=== PATIENT | female | born 1990 | race Caucasian/White ===

== ENCOUNTER 2016-10-11 02:19 | Emergency (ER) | payer BC ==
[2016-10-11 02:47] VITALS: BMI 32.9
[2016-10-11] MEDS ORDERED: SODIUM CHLORIDE 1,000 ML IV STA (03:20)
[2016-10-11 03:41] LABS: BASOPHIL 0.6 % (0-2.0); EOSINOPHIL 0.4 % (0-4.5); MCH 24.7 pg (25.7-33.7); MCHC 32.4 g/dl (32.0-36.0); MEAN CELL VOLUME 76.4 fl (80-96); MEAN PLT VOLUME 6.9 fl (7.5-11.1); NEUTROPHILS 79.9 % (42.8-82.8); PLATELET COUNT 296 K/MM3 (134-434); RDW 14.3 % (11.6-15.6); WHITE BLOOD COUNT 13.9 K/mm3 (4.0-10.0)
--- NOTE | 2016-10-11 03:41 | PDOC ---
History of Present Illness - General Chief Complaint: Pain Stated Complaint: FEVER, SORE THROAT (32 WEEKS PREG) Time Seen by Provider: 10/11/16 02:28 History Source: Patient Exam Limitations: No Limitations - History of Present Illness Initial Comments: 10/11/16 03:36 25yo Female patient 32 weeks presents to ED c/o sore throat x 3 days, fever today (101.0). Patient states she took Tylenol prior to her arrival with no relief. Patient denies any other complaints at this time. Past History - Travel Traveled outside of the country in the last 30 days: No Close contact w/someone who was outside of country & ill: No - Past Medical History Allergies/Adverse Reactions: Allergies Allergy/AdvReac Type Severity Reaction Status Date / Time No Known Allergies Allergy Verified 10/11/16 02:43 Home Medications: Ambulatory Orders Vitamins (Sjr) - 1 tab PO DAILY 04/03/14 Acetaminophen [Tylenol .Regular Strength -] 650 mg PO Q3H PRN #20 tablet Ferrous Sulfate [Feosol] 325 mg PO BID #0 ud 04/07/14 Amoxicillin - [Amoxicillin 500mg Capsule -] 500 mg PO TID #21 capsule 10/11/16 Asthma: No Cancer: No Cardiac Disorders: No Diabetes: Yes (Pre-diabetic) HTN: No Seizures: No Thyroid Disease: No - Surgical History Abdominal Surgery: Yes (HERNIA REPAIR) - Reproductive History (#): 1 Para: 0 Spontaneous : 0 - Immunization History Immunization Up to Date: Yes - Psycho/Social/Smoking Cessation Hx Anxiety: No Suicidal Ideation: No Smoking Status: No Smoking History: Never smoked Years of Tobacco Use: 3 Have you smoked in the past 12 months: Yes Number of Cigarettes Smoked Daily: 6 If you are a former smoker, when did you quit?: 07/2013 Information on smoking cessation initiated: No 'Breaking Loose' booklet given: 09/05/13 Hx Alcohol Use: No Drug/Substance Use Hx: No Substance Use Type: None Hx Substance Use Treatment: No Respiratory Specific PMHX - Complaint Specific PMHX Angina: No Bronchitis: No Pneumonia: No Pulmonary Embolus: No TB (Tuberculosis): No Review of Systems - Review of Systems Able to Perform ROS?: Yes Is the patient limited Kittitian proficient: No Constitutional: Yes: Fever. No: Chills HEENTM: Yes: Throat Pain. No: Difficulty Swallowing Respiratory: No: Cough, Shortness of Breath, Wheezing Cardiac (ROS): No: Chest Pain, Palpitations, Syncope, Chest Tightness ABD/GI: Yes: Other (32 Weeks ). No: Diarrhea, Nausea, Poor Appetite, Poor Fluid Intake, Vomiting : No: Dysuria, Flank Pain, Hematuria Musculoskeletal: Yes: Neck Pain. No: Back Pain Integumentary: No: Bruising, Rash, Sweating Neurological: No: Headache, Tingling, Dizziness Hematologic/Lymphatic: Yes: Lymph Node Abnormalities All Other Systems: Reviewed and Negative *Physical Exam - Vital Signs Last Vital Signs Temp Pulse Resp BP Pulse Ox 99.3 F 129 H 20 102/68 99 10/11/16 02:44 10/11/16 02:44 10/11/16 02:44 10/11/16 02:44 10/11/16 02:44 - Physical Exam General Appearance: Yes: Nourished, Appropriately Dressed. No: Apparent Distress, Mild Distress, Moderate Distress, Severe Distress HEENT: positive: EOMI, SOWMYA, Normal ENT Inspection, Normal Voice, Symmetrical, TMs Normal, Pharyngeal Erythema, Tonsillar Erythema. negative: Pharynx Normal, Tonsillar Exudate, TM Bulging, TM Dull, TM Erythema Neck: positive: Trachea midline, Normal Thyroid, Supple, Lymphadenopathy (R), Lymphadenopathy (L). negative: Stridor, Tender lateral, Tender midline Respiratory/Chest: positive: Lungs Clear, Normal Breath Sounds. negative: Chest Tender, Respiratory Distress, Accessory Muscle Use, Labored Respiration, Rapid RR Cardiovascular: positive: Regular Rhythm, Regular Rate Gastrointestinal/Abdominal: positive: Normal Bowel Sounds, Soft, Distended (32 Weeks ). negative: Guarding, Rebound, Tenderness Musculoskeletal: positive: Normal Inspection. negative: CVA Tenderness, Decreased Range of Motion, Muscle Spasm, Vertebral Tenderness Extremity: positive: Normal Capillary Refill, Normal Inspection, Normal Range of Motion. negative: Pedal Edema, Swelling, Calf Tenderness, Erythema, Inflammation Integumentary: positive: Normal Color, Dry, Warm Neurologic: positive: cotton candy maker II-XII NML intact, Fully Oriented, Alert, Normal Mood/ Affect, Normal Response, Motor Strength 5/5 ED Treatment Course - LABORATORY CBC & Chemistry Diagram: 10/11/16 03:34 10/11/16 03:34 *DC/Admit/Observation/Transfer - Prescriptions Prescriptions: Amoxicillin - [Amoxicillin 500mg Capsule -] 500 mg PO TID #21 capsule
[2016-10-11 04:06] LABS: ALBUMIN 2.7 g/dl (3.4-5.0); ALK PHOS 143 U/L (45-117); ANION GAP 11 (8-16); BILIRUBIN,TOTAL 0.3 mg/dL (0.2-1.0); CALCIUM 8.7 mg/dL (8.5-10.1); CO2 22 mmol/L (21-32); COCKROFT - GAULT 186.3455; CREATININE 0.6 mg/dL (0.55-1.02); GLUCOSE,RANDOM 95 mg/dL (74-106); SGOT/AST 13 U/L (15-37); SGPT/ALT 14 U/L (12-78); TOT PROT 6.6 g/dl (6.4-8.2)
[2016-10-11 05:02] LABS: URINE APPEARANCE CLEAR; URINE BILIRUBIN NEGATIVE (NEGATIVE); URINE COLOR STRAW; URINE GLUCOSE (UA) NEGATIVE (NEGATIVE); URINE KETONE TRACE (NEGATIVE); URINE NITRITE NEGATIVE (NEGATIVE); URINE PROTEIN NEGATIVE (NEGATIVE); URINE UROBILINOGEN NEGATIVE E.U./dl (0.2-1.0)
[2016-10-11 05:10] LABS: URINE BLOOD 1+ (NEGATIVE); URINE LEUK ESTERASE TRACE (NEGATIVE)
[2016-10-11 05:19] LABS: URINE BACTERIA MANY /hpf (NONE SEEN); URINE RBC 1 /hpf (0-3); URINE WBC 9 /hpf (3-5)
[2016-10-11] MEDS ORDERED: AMOXICILLIN 500 MG CAPSULE (FP) PO ONE (05:43)
[2016-10-11] MEDS ORDERED: AMOXICILLIN 500 MG CAPSULE (FP) ONE (05:50)
[2016-10-11 06:46] VITALS: BP 106/64; PULSE 105; TEMP 97.8
== END 2016-10-11 07:01 | disposition home or self-care (01) ==
LOC: JER 02:19
DX: O99.89 Other specified diseases and conditions complicating pregnancy, childbirth and the puerperium (principal); R50.9 Fever, unspecified; Z3A.32 32 weeks gestation of pregnancy
CPT/HCPCS: 36415; 80053; 81003; 81015; 85025; 87070; 87086; 87430; 99284-25

== ENCOUNTER 2016-11-29 20:45 | Inpatient (IN) | payer BC ==
[2016-11-29] MEDS ORDERED: ELECTROLYTE-148 SOLN 1,000 ML IV SCH (23:00)
--- NOTE | 2016-11-29 23:07 | HP ---
Past Medical History - Admission Chief Complaint: Back pain History of Present Illness: 26 yo @ 40 weeks gestation, EDC 11/29/16, presents c/o back pain. She denies any vaginal bleeding nor rupture of membrane. History Source: Patient Limitations to Obtaining History: No Limitations - Past Medical History ...Para: 1 ...EDC by Rosanne: 11/29/16 Heme/Onc: Yes: Anemia Infectious Disease: Yes: STD's (h/o gonorrhea treated 2010.) - Past Surgical History Past Surgical History: Yes: None Hx Myomectomy: No Hx Transabdominal Cerclage: No - Smoking History Smoking history: Never smoked Have you smoked in the past 12 months: Yes Aproximately how many cigarettes per day: 6 If you are a former smoker, when did you quit?: 07/2013 - Alcohol/Substance Use Hx Alcohol Use: No History of Substance Use: reports: None - Social History Usual Living Arrangement: Yes: With Spouse History of Recent Travel: No Home Medications - Allergies Allergies/Adverse Reactions: Allergies Allergy/AdvReac Type Severity Reaction Status Date / Time No Known Allergies Allergy Verified 10/11/16 02:43 - Home Medications Home Medications: Ambulatory Orders Vitamins (Sjr) - 1 tab PO DAILY 04/03/14 Acetaminophen [Tylenol .Regular Strength -] 650 mg PO Q3H PRN #20 tablet Ferrous Sulfate [Feosol] 325 mg PO BID #0 ud 04/07/14 Amoxicillin - [Amoxicillin 500mg Capsule -] 500 mg PO TID #21 capsule 10/11/16 Family Disease History - Family Disease History Family History: Unremarkable Review of Systems - Review of Systems Constitutional: reports: No Symptoms Eyes: reports: No Symptoms HENT: reports: No Symptoms Neck: reports: No Symptoms Cardiovascular: reports: No Symptoms Respiratory: reports: No Symptoms Gastrointestinal: reports: No Symptoms Genitourinary: reports: Pain, Other (Back pain) Breasts: reports: No Symptoms Reported Musculoskeletal: reports: No Symptoms Integumentary: reports: No Symptoms Neurological: reports: No Symptoms Endocrine: reports: No Symptoms Hematology/Lymphatic: reports: No Symptoms Psychiatric: reports: No Symptoms Pain Intensity: 4 Physical Exam - Maternity Vital Signs: Vital Signs Temperature Pulse Rate 67 11/29/16 22:58 Respiratory Rate 20 11/29/16 22:58 Blood Pressure 122/69 11/29/16 22:58 O2 Sat by Pulse Oximetry (%) Constitutional: Yes: Well Nourished Eyes: Yes: Conjunctiva Clear HENT: Yes: Atraumatic Neck: Yes: Supple, Trachea Midline Cardiovascular: Yes: Regular Rate and Rhythm Lungs: Clear to auscultation - Abdominal Exam/OB Number of Fetuses: Single Presentation: Vertex - Vaginal Exam/OB Dilatation (cm): 4 Effacement (%): 70 Amniotic Membrane Status: Intact Meconium: Light Presentation: Vertex/Position Station: -2 - Physical Exam Musculoskeletal: Yes: WNL Integumentary: Yes: WNL ...Motor Strength: WNL Psychiatric: Yes: Alert, Oriented Assessment/Plan IUP @ 40 weeks Early labor Admit to L&D Pitocin augmentation Anticipate
[2016-11-29 23:10] LABS: BASOPHIL 0.4 % (0-2.0); MCH 22.2 pg (25.7-33.7); MCHC 31.5 g/dl (32.0-36.0); MEAN CELL VOLUME 70.6 fl (80-96); MEAN PLT VOLUME 7.4 fl (7.5-11.1); NEUTROPHILS 63.9 % (42.8-82.8); PLATELET COUNT 284 K/MM3 (134-434); RDW 16.6 % (11.6-15.6); WHITE BLOOD COUNT 11.6 K/mm3 (4.0-10.0)
[2016-11-29] MEDS ORDERED: OXYTOCIN 15 UNITS/ LR 250 ML 250 ML IVPB SCH (23:15)
[2016-11-29 23:28] LABS: INR 1.03 (0.82-1.09); PROTHROMBIN TIME (PATIENT) 11.3 SEC (9.98-11.88)
[2016-11-29 23:31] LABS: ACTIVATED PTT 26.7 SECONDS (26.9-34.4)
[2016-11-29 23:37] LABS: ANION GAP 10 (8-16); CALCIUM 8.1 mg/dL (8.5-10.1); CO2 23 mmol/L (21-32); CREATININE 0.6 mg/dL (0.55-1.02); GLUCOSE,RANDOM 91 mg/dL (74-106)
[2016-11-30] MEDS ORDERED: FENTANYL/BUPIVACAINE/NS/PF - PCEA - 50 ML DISP.SYRIN EP SCH ×2 (01:15→01:16)
[2016-11-30] MEDS ORDERED: BISACODYL 10 MG SUPP.RECT RC PRN (03:40)
[2016-11-30] MEDS ORDERED: BENZOCAINE 20% 57 GM BOTTLE TP PRN (03:40)
[2016-11-30] MEDS ORDERED: WITCH HAZEL 50% (TUCKS) 40 PAD/JAR PAD TP PRN (03:40)
[2016-11-30] MEDS ORDERED: METHYLERGONOVINE MALEATE 0.2 MG/1 ML AMP IM PRN (03:40)
[2016-11-30] MEDS ORDERED: BENZOCAINE 28 GM HEMORRHOIDAL OINTMENT TP PRN (03:40)
--- NOTE | 2016-11-30 03:43 | PN ---
Delivery - Delivery Vaginal Delivery: Spontaneous Type of Anesthesia: Epidural Episiotomy/Laceration: 1st degree EBL (cc): 300 Remarks - Remarks Remarks: Normal spontaneous vaginal delivery of a live over first degree laceration. Nose / Oropharynx suctioned @ perineum. Cord clamped and cut. Placenta expelled spontaneously intact. Laceration repaired with 2.0 Biosyn.
[2016-11-30] MEDS ORDERED: D5W-LR W/ 20 UNITS OXYTOCIN 1,000 ML IV SCH (03:45)
--- NOTE | 2016-11-30 03:46 | DS ---
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 Vital Signs: Vital Signs Temperature 98.6 F 11/30/16 02:00 Pulse Rate 79 11/30/16 01:50 Respiratory Rate 20 11/30/16 01:50 Blood Pressure 98/62 11/30/16 01:50 O2 Sat by Pulse Oximetry (%) 100 11/30/16 01:50 Constitutional: Yes: Well Nourished Eyes: Yes: Conjunctiva Clear HENT: Yes: Atraumatic Neck: Yes: Supple Cardiovascular: Yes: Regular Rate and Rhythm Respiratory: Yes: Regular Gastrointestinal: Yes: Normal Bowel Sounds Vaginal Exam: Yes: Normal Cervix: Yes: Normal Uterus: Yes: Firm ....Post : Yes: Uterus firm, Moderate lochia serosa Breast(s): Yes: WNL Musculoskeletal: Yes: WNL Extremities: Yes: WNL Neurological: Yes: Alert, Oriented ...Motor Strength: WNL Psychiatric: Yes: Alert, Oriented Labs: CBC, BMP 11/29/16 22:43 11/29/16 22:43 Delivery - Delivery Vaginal Delivery: Spontaneous Type of Anesthesia: Epidural Episiotomy/Laceration: 1st degree EBL (cc): 300 Discharge Summary Reason For Visit: LABOR ADMIT Current Active Problems Status post normal vaginal delivery (Acute) Procedures: Principal: Normal spontaneous vaginal delivery Hospital Course: Routine care Condition: Good - Instructions Diet, Activity, Other Instructions: Regular diet No douching, no sexual intercourse x 6 weeks F/U in clinic in 6 weeks Disposition: HOME - Home Medications Comprehensive Discharge Medication List: Ambulatory Orders Vitamins (Sjr) - 1 tab PO DAILY 04/03/14 Acetaminophen [Tylenol .Regular Strength -] 650 mg PO Q3H PRN #20 tablet Ferrous Sulfate [Feosol] 325 mg PO BID #0 ud 04/07/14 Amoxicillin - [Amoxicillin 500mg Capsule -] 500 mg PO TID #21 capsule 10/11/16
[2016-11-30 04:15] VITALS: BMI 32.9
[2016-11-30] MEDS: IBUPROFEN 600 MG TABLET (FP) PO PRN ×2 (08:14→21:03)
[2016-11-30] MEDS: FERROUS SO4 325 MG TABLET (FP) PO SCH ×3 (08:14→17:16)
[2016-11-30] MEDS: ACETAMINOPHEN 325 MG TABLET (FP) PO PRN ×2 (08:14→21:03)
[2016-11-30] MEDS: PRENATAL VITAMINS W/ FOLIC ACID TABLET (FP) PO SCH (09:23)
[2016-12-01] MEDS: ACETAMINOPHEN 325 MG TABLET (FP) PO PRN ×2 (07:14→13:52)
[2016-12-01] MEDS: IBUPROFEN 600 MG TABLET (FP) PO PRN ×2 (07:14→13:51)
[2016-12-01 07:18] LABS: BASOPHIL 0.5 % (0-2.0); EOSINOPHIL 1.2 % (0-4.5); MCHC 32.2 g/dl (32.0-36.0); MEAN CELL VOLUME 71.3 fl (80-96); MEAN PLT VOLUME 7.3 fl (7.5-11.1); NEUTROPHILS 64.9 % (42.8-82.8); PLATELET COUNT 294 K/MM3 (134-434); RDW 16.8 % (11.6-15.6); WHITE BLOOD COUNT 13.4 K/mm3 (4.0-10.0)
[2016-12-01] MEDS: PRENATAL VITAMINS W/ FOLIC ACID TABLET (FP) PO SCH (09:05)
[2016-12-01] MEDS: FERROUS SO4 325 MG TABLET (FP) PO SCH ×3 (09:05→17:54)
[2016-12-01] MEDS ORDERED: DIPHTH,PERTUSS(ACELL),TET 0.5 ML DISP.SYRIN IM ONE (10:00)
--- NOTE | 2016-12-01 10:08 | PN ---
Post Progress Note - Subjective Subjective: Status post , seen and evaluated. Doing well. Post Day: 1 Type of Delivery: Vital Signs: Vital Signs Temperature 98.3 F 11/30/16 22:00 Pulse Rate 79 11/30/16 22:00 Respiratory Rate 18 11/30/16 22:00 Blood Pressure 102/66 11/30/16 22:00 O2 Sat by Pulse Oximetry (%) 99 11/30/16 04:30 Uterus: Yes: Fundus Firm Abdomen/GI: Yes: Abdomen soft, Tolerating PO Lochia: Yes: Rubra Lochia, amount: Moderate Extremities: Yes: Calves non-tender Activity: Ambulating - Labs Labs: CBC WBC 13.4 K/mm3 (4.0-10.0) H 12/01/16 06:45 RBC 4.43 M/mm3 (3.60-5.2) 12/01/16 06:45 Hgb 10.2 GM/dL (10.7-15.3) L 12/01/16 06:45 Hct 31.6 % (32.4-45.2) L 12/01/16 06:45 MCV 71.3 fl (80-96) L 12/01/16 06:45 MCH 23.0 pg (25.7-33.7) L 12/01/16 06:45 MCHC 32.2 g/dl (32.0-36.0) 12/01/16 06:45 RDW 16.8 % (11.6-15.6) H 12/01/16 06:45 Plt Count 294 K/MM3 (134-434) 12/01/16 06:45 MPV 7.3 fl (7.5-11.1) L 12/01/16 06:45 Neutrophils % 64.9 % (42.8-82.8) 12/01/16 06:45 Lymphocytes % 28.3 % (8-40) 12/01/16 06:45 Monocytes % 5.1 % (3.8-10.2) 12/01/16 06:45 Eosinophils % 1.2 % (0-4.5) 12/01/16 06:45 Basophils % 0.5 % (0-2.0) 12/01/16 06:45 Assessment/Plan Status post Stable Continue Post op care
[2016-12-01] MEDS ORDERED: SENNOSIDES/DOCUSATE COMBO (SENNA PLUS) TABLET (UD) PO PRN (22:00)
[2016-12-02] MEDS: ACETAMINOPHEN 325 MG TABLET (FP) PO PRN (02:43)
[2016-12-02] MEDS: IBUPROFEN 600 MG TABLET (FP) PO PRN (02:44)
--- NOTE | 2016-12-02 07:34 | PN ---
Post Progress Note - Subjective Subjective: doing well, no issues Post Day: 2 Type of Delivery: Vital Signs: Vital Signs Temperature 98.1 F 12/01/16 21:33 Pulse Rate 76 12/01/16 21:33 Respiratory Rate 20 12/01/16 21:33 Blood Pressure 130/89 12/01/16 21:33 O2 Sat by Pulse Oximetry (%) 99 11/30/16 04:30 Breast Exam: Yes: Soft Uterus: Yes: Fundus Firm Abdomen/GI: Yes: Abdomen soft Lochia: Yes: Rubra Lochia, amount: Small Extremities: Yes: Calves non-tender Perineum: Yes: Intact Activity: Ambulating - Labs Labs: CBC WBC 13.4 K/mm3 (4.0-10.0) H 12/01/16 06:45 RBC 4.43 M/mm3 (3.60-5.2) 12/01/16 06:45 Hgb 10.2 GM/dL (10.7-15.3) L 12/01/16 06:45 Hct 31.6 % (32.4-45.2) L 12/01/16 06:45 MCV 71.3 fl (80-96) L 12/01/16 06:45 MCH 23.0 pg (25.7-33.7) L 12/01/16 06:45 MCHC 32.2 g/dl (32.0-36.0) 12/01/16 06:45 RDW 16.8 % (11.6-15.6) H 12/01/16 06:45 Plt Count 294 K/MM3 (134-434) 12/01/16 06:45 MPV 7.3 fl (7.5-11.1) L 12/01/16 06:45 Neutrophils % 64.9 % (42.8-82.8) 12/01/16 06:45 Lymphocytes % 28.3 % (8-40) 12/01/16 06:45 Monocytes % 5.1 % (3.8-10.2) 12/01/16 06:45 Eosinophils % 1.2 % (0-4.5) 12/01/16 06:45 Basophils % 0.5 % (0-2.0) 12/01/16 06:45 Assessment/Plan as above continue care dc home
[2016-12-02 08:14] VITALS: BP 127/70; PULSE 78; TEMP 97.7
[2016-12-02] MEDS: FERROUS SO4 325 MG TABLET (FP) PO SCH (09:04)
[2016-12-02] MEDS: PRENATAL VITAMINS W/ FOLIC ACID TABLET (FP) PO SCH (09:04)
== END 2016-12-02 11:00 | disposition home or self-care (01) | DRG 775 ==
LOC: JDEL 20:45 → JLDR 21:50 → J3W 11-30 05:25
PROVIDERS: ADMIT Obstetrics & Gynecology; ATTEND Obstetrics & Gynecology
PROC: 10E0XZZ Delivery of Products of Conception, External Approach (ICD-10-PCS; principal; 2016-11-30)
PROC: 0HQ9XZZ Repair Perineum Skin, External Approach (ICD-10-PCS; 2016-11-30)
DX: O48.0 Post-term pregnancy (principal); O70.0 First degree perineal laceration during delivery; Z3A.40 40 weeks gestation of pregnancy; Z37.0 Single live birth
CPT/HCPCS: 36415; 59409; 80048; 85025; 85610; 85730; 86593; 86850; 86900; 86901; 90715

== ENCOUNTER 2019-07-14 19:07 | Emergency (ER) | payer BC ==
[2019-07-14 19:13] VITALS: TEMP 98.2; BMI 32.0
--- NOTE | 2019-07-14 19:14 | PDOC ---
Rapid Medical Evaluation Time Seen by Provider: 07/14/19 19:10 Medical Evaluation: Allergies Allergy/AdvReac Type Severity Reaction Status Date / Time No Known Allergies Allergy Verified 10/11/16 02:43 07/14/19 19:10 I have performed a brief in-person evaluation of this patient. The patient presents with a chief complaint of: shooting left arm tingling since today, seen at urgent care today Pertinent physical exam findings: tachy to 110, otherwise well appearing I have ordered the following: ekg The patient will proceed to the ED for further evaluation. Discharge Disposition - Diagnosis Tingling of left upper extremity - Referrals - Patient Instructions - Post Discharge Activity
--- NOTE | 2019-07-14 19:28 | PDOC ---
History of Present Illness - General Chief Complaint: Head/Neck problem Stated Complaint: LT ARM PAIN Time Seen by Provider: 07/14/19 19:10 History Source: Patient Exam Limitations: No Limitations - History of Present Illness Initial Comments: 07/14/19 19:26 Any Ocasio is an otherwise healthy 28F presenting with left upper extremity tingling and palpitations. 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 Denies any recent trauma, strenuous exercise, trauma to the arm. Also associated with dizziness, palpitations, denies chest pain or SOB. Went home and sensation did not improve. Able to move without limitations, no weakness. Right arm normal. Denies DAILY, syncope, abdominal pain, urinary symptoms, constipation, diarrhea. Denies at this time. Has had palpitations in the past, tracks HR via phone carmen, has been in 130s at rest. Evaluated during last without findings. Drank a lot of alcohol last weekend, on pack of cigarettes lasts 4 days. Past History - Past Medical History Allergies/Adverse Reactions: Allergies Allergy/AdvReac Type Severity Reaction Status Date / Time No Known Allergies Allergy Verified 10/11/16 02:43 Home Medications: Ambulatory Orders NK [No Known Home Medication] 07/14/19 Asthma: No Cancer: No Cardiac Disorders: No COPD: No Diabetes: No HTN: No Seizures: No Thyroid Disease: No - Surgical History Abdominal Surgery: Yes (HERNIA REPAIR) - Reproductive History (#): 1 Para: 0 Spontaneous : 0 - Immunization History Immunization Up to Date: Yes - Psycho Social/Smoking Cessation Hx Smoking Status: No Smoking History: Current every day smoker Years of Tobacco Use: 3 Have you smoked in the past 12 months: Yes Number of Cigarettes Smoked Daily: 4 If you are a former smoker, when did you quit?: 07/2013 Information on smoking cessation initiated: Yes 'Breaking Loose' booklet given: 09/05/13 Hx Alcohol Use: No Drug/Substance Use Hx: No Substance Use Type: None Hx Substance Use Treatment: No Review of Systems - Review of Systems Able to Perform ROS?: Yes Constitutional: No: Chills, Fever HEENTM: No: Eye Pain, Blurred Vision, Tearing Respiratory: No: Cough, Shortness of Breath, Stridor, Wheezing Cardiac (ROS): Yes: Chest Pain, Irregular Heart Rate, Palpitations. No: Edema, Lightheadedness, Syncope, Chest Tightness, Other ABD/GI: No: Constipated, Diarrhea, Nausea, Poor Appetite, Poor Fluid Intake, Vomiting : No: Burning, Dysuria, Discharge, Frequency, Flank Pain, Hematuria, Incontinence Musculoskeletal: No: Back Pain, Gout, Joint Pain, Joint Swelling, Muscle Pain, Muscle Weakness Integumentary: No: Bruising, Change in Color, Erythema Neurological: Yes: Numbness, Tingling. No: Headache, Weakness Endocrine: No: Symptoms Reported Hematologic/Lymphatic: No: Symptoms Reported All Other Systems: Reviewed and Negative *Physical Exam - Vital Signs Last Vital Signs Temp Pulse Resp BP Pulse Ox 98.2 F 115 H 18 129/92 99 07/14/19 19:10 07/14/19 19:10 07/14/19 19:10 07/14/19 19:10 07/14/19 19:10 - Physical Exam General Appearance: Yes: Nourished, Appropriately Dressed, Obese, Other (resting comfortably in bed, smiling and laughing with friend, in NAD, moving left and right arms spontaneously and without nursing L arm). No: Apparent Distress HEENT: positive: EOMI, SOWMYA, Normal Voice, Symmetrical, Pharynx Normal, Hearing Grossly Normal. negative: Photophobia, Scleral Icterus (R), Scleral Icterus (L), Pharyngeal Erythema, Tonsillar Exudate, Tonsillar Erythema, Hearing Decreased Neck: positive: Tender, Trachea midline, Normal Thyroid, Supple. negative: Rigid, Lymphadenopathy (R), Lymphadenopathy (L) Respiratory/Chest: positive: Lungs Clear, Normal Breath Sounds. negative: Chest Tender, Respiratory Distress, Accessory Muscle Use, Crackles, Rales, Rhonchi, Wheezing Cardiovascular: positive: Regular Rhythm, Regular Rate. negative: Murmur Gastrointestinal/Abdominal: positive: Normal Bowel Sounds, Flat, Soft. negative: Tender, Organomegaly, Pulsatile Mass, Guarding, Rebound, Hernia Musculoskeletal: positive: Normal Inspection. negative: CVA Tenderness, Vertebral Tenderness Extremity: positive: Normal Capillary Refill, Normal Inspection, Normal Range of Motion. 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 negative: Numbness (sensation the same to BUE from shoulders to fingertips), Sensory Deficit (sensation intact to LT and cold from shoulders to fingertips in both arms) ED Treatment Course - LABORATORY CBC & Chemistry Diagram: 07/14/19 20:00 07/14/19 20:00 Medical Decision Making - Medical Decision Making 07/14/19 20:12 Patient presents with new onset L arm tingling in association with dizziness and palpitations, without any recent trauma or exertion. Will evaluate for cardiac etiology. No obvious neuromuscular or vascular deficits to L arm requiring radiographic imaging. VS show tachycardia in triage but down to 85 when evaluating now, appears comfortable, no obvious abnormalities on exam. - CMP/CBC for eval lytes/anemia - CP/ECG for eval cardiac etiology - serum for eval L arm BP: 118/93 R arm BP 131/87 HR 85 ECG shows HR 90 with incomplete RBBB. Present on prior ECG from 2011. 07/14/19 22:45 Labs remarkable for: - CMP WNL - CBC WNL - serum negative - CP negative Patient still had L arm pain, given 30mg Toradol IV. After patient's numbness/tingling has resolved. Stable for d/c home with PMD and cardiology follow-up. Discharge - Discharge Information Problems reviewed: Yes Clinical Impression/Diagnosis: Tingling of left upper extremity, Palpitations Condition: Fair Disposition: HOME - Admission No - Follow up/Referral Referrals: Charanjit Workman MD [Staff Physician] - [facility] [place] [facility] [Provider Group] - Patient Discharge Instructions Patient Printed Discharge Instructions: DI for Arm Pain Additional Instructions: Today you were evaluated for arm pain. We have evaluated you and found that your arm pain is probably a pulled muscle pinching on a nerve. We gave you a medication called Toradol which relieved your pain. At home, do not strain your left arm by doing heavy lifting, sports, etc. You can take ibuprofen 400mg every 4-6 hours for your arm tingling as needed. You were also having palpitations, and you should see a dog breeder for further evaluation. If you experience worsening chest pain, dizziness, palpitations, arm pain, weakness, or any other new or concerning symptoms, please return to the emergency room. - Post Discharge Activity
[2019-07-14 20:23] LABS: BASO % 0.8 % (0-2.0); HEMATOCRIT 40.3 % (32.4-45.2); LYMPH % 26.5 % (8-40); MCH 29.4 pg (25.7-33.7); MCHC 34.7 g/dl (32.0-36.0); MEAN CELL VOLUME 84.6 fl (80-96); MEAN PLT VOLUME 7.4 fl (7.5-11.1); MONO % 7.5 % (3.8-10.2); NEUT % 64.2 % (42.8-82.8); PLATELET COUNT 353 K/MM3 (134-434); RBC 4.77 M/mm3 (3.60-5.2); RDW 13.2 % (11.6-15.6); WHITE BLOOD COUNT 9.7 K/mm3 (4.0-10.0)
--- NOTE | 2019-07-14 20:33 | PDOC ---
*Physical Exam - Vital Signs Last Vital Signs Temp Pulse Resp BP Pulse Ox 98.2 F 115 H 18 129/92 99 07/14/19 19:10 07/14/19 19:10 07/14/19 19:10 07/14/19 19:10 07/14/19 19:10 Heart Score/ECG Review - ECG Impressions Comment:: 07/14/19 23:06 HR 96, TWI in V1/V3, RBB incomplete in V2, consistent with previous EKG in 2013 ED Treatment Course - LABORATORY CBC & Chemistry Diagram: 07/14/19 20:00 07/14/19 20:00 - ADDITIONAL ORDERS Additional order review: 07/14/19 20:00 RBC 4.77 MCV 84.6 MCHC 34.7 RDW 13.2 D MPV 7.4 L Neutrophils % 64.2 Lymphocytes % 26.5 Monocytes % 7.5 Eosinophils % 1.0 Basophils % 0.8 Medical Decision Making - Medical Decision Making 07/14/19 20:32 Patient seen as pre-attending with Dr. Alexandra (PGY-1) and Dr. Boothe 28 y/o female with a PMHx of tachycardia here with LUE hand fullness. Symptom s tarted earlier this afternoon. 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 Reports she looked at her Iphone heart monitor and her HR was 120's-130's. H/o tachycardia when she was for which she wore a Holter monitor for 2-3 days. Tachycardic @ triage (HR 105); during my exam patient HR 80's No neurologic deficit on PE including intact sensation on LUE, no edema, 2+ DP pulse EKG w/o acute ischemic change as documented in EKG section of EMR. Will give supportive care, monitor HR Reassess. 07/14/19 22:56 Patient reassessed @ bedside repeat HR 74, SpO2 99% Symptoms resolved Will d/c home with return precautions, instruction to f/u with cardiology and PMD Clinical Impression: MSK pain Discharge - Discharge Information Problems reviewed: Yes Clinical Impression/Diagnosis: Tingling of left upper extremity, Palpitations Condition: Fair Disposition: HOME - Follow up/Referral Referrals: [facility] [place] [facility] [Provider Group] Charanjit Workman MD [Staff Physician] - - Patient Discharge Instructions Patient Printed Discharge Instructions: DI for Arm Pain Additional Instructions: Today you were evaluated for arm pain. We have evaluated you and found that your arm pain is probably a pulled muscle pinching on a nerve. We gave you a medication called Toradol which relieved your pain. At home, do not strain your left arm by doing heavy lifting, sports, etc. You can take ibuprofen 400mg every 4-6 hours for your arm tingling as needed. You were also having palpitations, and you should see a cafeteria monitor for further evaluation. If you experience worsening chest pain, dizziness, palpitations, arm pain, weakness, or any other new or concerning symptoms, please return to the emergency room. - Post Discharge Activity
[2019-07-14 20:41] VITALS: BP 131/87; PULSE 96
[2019-07-14 20:59] LABS: ALBUMIN 3.5 g/dl (3.4-5.0); ALK PHOS 57 U/L (45-117); ANION GAP 7 MMOL/L (8-16); BILIRUBIN,TOTAL 0.3 mg/dL (0.2-1); BLOOD UREA NITROGEN 13.2 mg/dL (7-18); CALCIUM 7.9 mg/dL (8.5-10.1); CHLORIDE 112 mmol/L (98-107); CO2 23 mmol/L (21-32); CREATININE 0.6 mg/dL (0.55-1.3); GLUCOSE,RANDOM 82 mg/dL (74-106); POTASSIUM 3.3 mmol/L (3.5-5.1); SGOT/AST 17 U/L (15-37); SGPT/ALT 23 U/L (13-61); SODIUM 142 mmol/L (136-145); TOT PROT 6.8 g/dl (6.4-8.2)
--- NOTE | 2019-07-14 21:01 | PDOC ---
Attending Attestation - Resident Resident Name: damir dao - ED Attending Attestation I have performed the following: I have examined & evaluated the patient, The case was reviewed & discussed with the resident, I agree w/resident's findings & plan, Exceptions are as noted - HPI HPI: 07/14/19 23:14 See resident HPI - Physicial Exam PE: 07/14/19 23:14 Agree with documented exam - Medical Decision Making 07/14/19 23:14 28F LUE tingling and pain, palpitations? Consider msk px, pain response for tachycardia? eval for electrolyte derangement, consider atypical acs, less likely central neurologic etiology f/u labs, ekg, preg symptomatic tx re-eval symptoms resolved dc pcp f/u, cardiology f/u
[2019-07-14] MEDS ORDERED: KETOROLAC TROMETHAMINE 30 MG/1 ML VIAL IVPUSH ONE (21:48)
[2019-07-14] MEDS ORDERED: KETOROLAC TROMETHAMINE 30 MG/1 ML VIAL ONE (22:07)
--- NOTE | 2019-07-15 11:12 | EKG ---
Test Reason : Blood Pressure : / mmHG Vent. Rate : 096 BPM Atrial Rate : 096 BPM P-R Int : 120 ms QRS Dur : 106 ms QT Int : 362 ms P-R-T Axes : 046 006 032 degrees QTc Int : 457 ms NORMAL SINUS RHYTHM WITH SINUS ARRHYTHMIA INCOMPLETE RIGHT BUNDLE BRANCH BLOCK NONSPECIFIC T WAVE ABNORMALITY ABNORMAL ECG WHEN COMPARED WITH ECG OF 21-DEC-2011 17:25, NO SIGNIFICANT CHANGE WAS FOUND Confirmed by FANNY SINGLETON MD ([id number]) on 07/15/2019 11:12:24 AM Referred By: Confirmed By:FANNY SINGLETON MD
== END 2019-07-14 23:10 | disposition home or self-care (01) ==
LOC: JER 19:07
PROC: 3E033GC Introduction of Other Therapeutic Substance into Peripheral Vein, Percutaneous Approach (ICD-10-PCS; principal; 2019-07-14)
DX: M79.602 Pain in left arm (principal); R00.2 Palpitations; F17.210 Nicotine dependence, cigarettes, uncomplicated
CPT/HCPCS: 36415; 80053; 82550; 82553; 84484; 84703; 85025; 93005; 93010; 99285-25

== ENCOUNTER 2020-07-02 13:12 | Emergency (ER) | payer BC ==
[2020-07-02 13:29] VITALS: BP 123/71; PULSE 107; TEMP 98.1; BMI 32.0
== END 2020-07-02 14:40 | disposition home or self-care (01) ==
LOC: JER 13:12
DX: R05 Cough (principal); U07.1 COVID-19
CPT/HCPCS: 71046-TC-FY; 99283-25

== ENCOUNTER 2020-11-09 00:29 | Emergency (ER) | payer BC ==
[2020-11-09 00:53] VITALS: BP 121/82; PULSE 108; TEMP 97.3; BMI 32.1
== END 2020-11-09 03:43 | disposition home or self-care (01) ==
LOC: JER 00:29
DX: R22.0 Localized swelling, mass and lump, head (principal)
CPT/HCPCS: 99282-25

== ENCOUNTER 2020-11-22 02:27 | Emergency (ER) | payer BC ==
[2020-11-22 03:39] VITALS: BP 106/73; PULSE 86; TEMP 97.9; BMI 29.0
[2020-11-22] MEDS ORDERED: IBUPROFEN 600 MG TABLET (FP) PO ONE ×2 (04:06→04:12)
[2020-11-22] MEDS ORDERED: LIDOCAINE 5% TOPICAL PATCH TP ONE (04:06)
[2020-11-22] MEDS ORDERED: LIDOCAINE 5% TOPICAL PATCH ONE (04:12)
[2020-11-22] MEDS ORDERED: diazePAM 5 MG TABLET ONE (04:52)
[2020-11-22] MEDS ORDERED: DEXAMETHASONE SOD PHOSPHATE 10 MG/1 ML VIAL IM ONE (04:52)
[2020-11-22] MEDS ORDERED: diazePAM 5 MG TABLET PO ONE (04:52)
[2020-11-22] MEDS ORDERED: DEXAMETHASONE SOD PHOSPHATE 10 MG/1 ML VIAL ONE (04:54)
[2020-11-22] MEDS ORDERED: LIDOCAINE PATCH REMOVAL MC ONE (16:00)
== END 2020-11-22 06:44 | disposition home or self-care (01) ==
LOC: JER 02:27
PROC: 3E023GC Introduction of Other Therapeutic Substance into Muscle, Percutaneous Approach (ICD-10-PCS; principal; 2020-11-22)
DX: S29.012A Strain of muscle and tendon of back wall of thorax, initial encounter (principal)
CPT/HCPCS: 71046-TC-FY; 99284-25; J1100

== ENCOUNTER 2023-05-19 10:33 | Day surgery (SDC) | payer BC, OTHER ==
[2023-05-12 10:11] VITALS: BMI 34.7
[2023-05-19 10:59] VITALS: RESP 18; TEMP 97.3
[2023-05-19 12:14] VITALS: BP 102/60; PULSE 80
== END 2023-05-19 12:15 | disposition home or self-care (01) ==
LOC: FASU-ENDO 10:33
PROVIDERS: ATTEND Internal Medicine Gastroenterology
PROC: 0DB68ZX Excision of Stomach, Via Natural or Artificial Opening Endoscopic, Diagnostic (ICD-10-PCS; 2023-05-19)
PROC: 0DB48ZX Excision of Esophagogastric Junction, Via Natural or Artificial Opening Endoscopic, Diagnostic (ICD-10-PCS; 2023-05-19)
PROC: 0DB98ZX Excision of Duodenum, Via Natural or Artificial Opening Endoscopic, Diagnostic (ICD-10-PCS; principal; 2023-05-19 11:24)
DX: K29.50 Unspecified chronic gastritis without bleeding (principal); K20.90 Esophagitis, unspecified without bleeding; K44.9 Diaphragmatic hernia without obstruction or gangrene; R10.13 Epigastric pain
CPT/HCPCS: 81025; 88305-TC; 88342-TC

== ENCOUNTER 2023-07-09 21:06 | Emergency (ER) | payer BC ==
[2023-07-09 21:30] VITALS: BP 124/72; PULSE 97; RESP 18; TEMP 98.2; BMI 34.7
[2023-07-09 22:29] LABS: BASO % 0.6 % (0-2.0); EOS % 1.4 % (0-4.5); HEMATOCRIT 38.4 % (32.4-45.2); LYMPH % 27.1 % (8-40); MCH 28.2 pg (25.7-33.7); MCHC 33.9 g/dl (32.0-36.0); MEAN CELL VOLUME 83.1 fl (80-96); NEUT % 63.9 % (42.8-82.8); PLATELET COUNT 343 10^3/uL (134-434); RBC 4.62 M/mm3 (3.60-5.2); RDW 14.3 % (11.6-15.6); WHITE BLOOD COUNT 11.7 K/mm3 (4.0-10.0)
[2023-07-09 22:37] LABS: INR 1.07 (0.83-1.09); PROTHROMBIN TIME (PATIENT) 12.4 SEC (9.7-13.0)
[2023-07-09 22:39] LABS: ACTIVATED PTT 32.9 SECONDS (25.2-36.5)
[2023-07-09 22:52] LABS: POTASSIUM 3.9 mmol/L (3.5-5.1)
[2023-07-09 22:53] LABS: CALCIUM 8.5 mg/dL (8.5-10.1)
[2023-07-09 22:54] LABS: ALBUMIN 3.4 g/dl (3.4-5.0); BLOOD UREA NITROGEN 17.1 mg/dL (7-18)
[2023-07-09 22:57] LABS: CREATININE 0.7 mg/dL (0.55-1.3)
[2023-07-09 22:58] LABS: BILIRUBIN,TOTAL 0.2 mg/dL (0.2-1); TOT PROT 7.4 g/dl (6.4-8.2)
== END 2023-07-09 23:55 | disposition home or self-care (01) ==
LOC: JER 21:06
DX: R00.2 Palpitations (principal); R07.89 Other chest pain; Z20.822 Contact with and (suspected) exposure to COVID-19
CPT/HCPCS: 0241U-QW; 36415; 71045-TC-FY; 80053; 83735; 84443; 84484; 84703; 85025; 85610; 85730; 86850; 86900; 86901; 93005; 93010; 99285-25

== ENCOUNTER 2025-01-07 01:59 | Emergency (ER) | payer BC, OTHER ==
[2025-01-07 02:16] VITALS: RESP 18; TEMP 98.1; BMI 35.3
[2025-01-07] MEDS ORDERED: FAMOTIDINE 20 MG/50 ML IVPB 20 MG/50 ML MG IVPB ONE (03:32)
[2025-01-07] MEDS ORDERED: MAG HYDROX/AL HYDROX/SIMETH 30 ML UNIT-DOSE CUP ONE (03:33)
[2025-01-07] MEDS: LACTATED RINGERS SOLUTION 1000 ML INFUS.BAG IV ONE (03:57)
[2025-01-07] MEDS: FAMOTIDINE 20 MG/50 ML IVPB 20 MG/50 ML MG IVPB ONE (03:57)
[2025-01-07] MEDS: MAG HYDROX/AL HYDROX/SIMETH 30 ML UNIT-DOSE CUP PO ONE (03:57)
[2025-01-07 04:27] LABS: ABSOLUTE IMMATURE GRANULOCYTES 0.04 x10^3/uL (0.0-0.031); BASOPHILS # 0.06 x10^3/uL (0.01-0.08); EOSINOPHIL % 2.5 % (0.7-5.8); EOSINOPHILS # 0.29 x10^3/uL (0.04-0.36); MCHC 31.9 g/dl (32.2-35.5); MEAN CELL VOLUME 86.1 fl (79.4-94.8); MEAN PLT VOLUME 9.2 fl (9.4-12.3); MONOCYTE # 0.85 x10^3/uL (0.24-0.86); MONOCYTE % 7.3 % (4.7-12.5); RDW 13.2 % (12.1-16.8)
[2025-01-07 04:29] LABS: URINE APPEARANCE CLOUDY; URINE BILIRUBIN NEGATIVE (NEGATIVE); URINE COLOR YELLOW; URINE GLUCOSE (UA) NEGATIVE (NEGATIVE); URINE KETONE TRACE (NEGATIVE); URINE LEUK ESTERASE NEGATIVE (NEGATIVE); URINE NITRITE NEGATIVE (NEGATIVE); URINE PROTEIN NEGATIVE (NEGATIVE); URINE UROBILINOGEN 1.0 mg/dL (0.2-1.0)
[2025-01-07 04:40] LABS: INR 1.05 (0.83-1.09); PROTHROMBIN TIME (PATIENT) 11.4 SEC (9.7-13.0)
[2025-01-07 04:42] LABS: ACTIVATED PTT 33.3 SECONDS (25.2-36.5)
[2025-01-07 04:51] LABS: GLUCOSE,RANDOM 114.0 mg/dL (74-106); TOT PROT 7.3 g/dl (6.4-8.2)
[2025-01-07 04:52] LABS: CO2 24.0 mmol/L (21-32)
[2025-01-07 04:53] LABS: ALK PHOS 59.0 U/L (40-150)
[2025-01-07 04:56] LABS: SGOT/AST 92.0 U/L (5-34); SGPT/ALT 76.0 U/L (0-55)
[2025-01-07 04:57] LABS: CREATININE 0.73 mg/dL (0.55-1.3)
[2025-01-07 05:13] LABS: HCV DIAGNOSTIC IN-HOUSE W/RFLX NON-REACTIVE (NONREACTIVE); HIV INTERPRETATION NEGATIVE (NEGATIVE)
[2025-01-07 06:12] VITALS: BP 130/79; PULSE 72
== END 2025-01-07 06:13 | disposition home or self-care (01) ==
LOC: JER 01:59
PROC: 3E033GC Introduction of Other Therapeutic Substance into Peripheral Vein, Percutaneous Approach (ICD-10-PCS; principal; 2025-01-07)
DX: R10.13 Epigastric pain (principal); R19.7 Diarrhea, unspecified; R82.90 Unspecified abnormal findings in urine
CPT/HCPCS: 36415; 74177-TC; 80053; 81003; 83690; 84703; 85025; 85610; 85730; 86803; 86850; 86900; 86901; 87086; 87389; 99285-25; Q9967

== ENCOUNTER 2025-03-03 10:32 | Day surgery (SDC) | payer BC ==
[2025-03-02 08:59] VITALS: BMI 34.7
[2025-03-03 12:07] VITALS: TEMP 97.2
[2025-03-03 12:09] VITALS: RESP 19
[2025-03-03 13:23] VITALS: BP 116/74; PULSE 72
== END 2025-03-03 12:45 | disposition home or self-care (01) ==
LOC: FASU-ENDO 10:32
PROVIDERS: ATTEND Internal Medicine Gastroenterology
PROC: 0DB68ZX Excision of Stomach, Via Natural or Artificial Opening Endoscopic, Diagnostic (ICD-10-PCS; 2025-03-03)
PROC: 0DB48ZX Excision of Esophagogastric Junction, Via Natural or Artificial Opening Endoscopic, Diagnostic (ICD-10-PCS; 2025-03-03)
PROC: 0DB98ZX Excision of Duodenum, Via Natural or Artificial Opening Endoscopic, Diagnostic (ICD-10-PCS; principal; 2025-03-03 11:19)
DX: K29.50 Unspecified chronic gastritis without bleeding (principal); K44.9 Diaphragmatic hernia without obstruction or gangrene; K22.89 Other specified disease of esophagus
CPT/HCPCS: 81025; 88305-TC; 88342-TC